=== PATIENT | male | born 1965 | race Two or more races ===

== ENCOUNTER 2018-05-08 15:40 | Inpatient (IN) | payer MEDICARE, OTHER, MEDICAID ==
[2018-05-08 16:06] LABS: ADD MAN DIFF? NO
[2018-05-08 16:07] LABS: BASOPHILS % 0.3 % (0.0-2.0); EOSINOPHILS % 0.4 % (0.0-7.0); HEMATOCRIT 43.5 % (42.0-52.0); HEMOGLOBIN 14.9 g/dl (14.0-18.0); LYMPHOCYTES # 2.1 10^3/ul (0.8-2.9); MEAN CORPUSCULAR HEMOGLOBIN 29.9 pg (29.0-33.0); MEAN CORPUSCULAR HGB CONC 34.3 g/dl (32.0-37.0); MEAN CORPUSCULAR VOLUME 87.2 fl (82.0-101.0); MEAN PLATELET VOLUME 10.3 fl (7.4-10.4); MONOCYTE # 0.7 10^3/ul (0.3-0.9); MONOCYTES % 7.2 % (0.0-11.0); NEUTROPHIL # 6.6 10^3/ul (1.6-7.5); NEUTROPHILS % 69.5 % (39.0-77.0); PLATELET COUNT 206 10^3/UL (140-415); RED BLOOD COUNT 4.99 10^6/ul (4.70-6.10); RED CELL DISTRIBUTION WIDTH 20.1 % (11.5-14.5)
[2018-05-08 16:07] LABS: WHITE BLOOD COUNT 9.5 10^3/ul (4.8-10.8)
[2018-05-08] MEDS ORDERED: HYDROmorphONE 1 MG/ML SYG (16:16)
[2018-05-08] MEDS ORDERED: ONDANSETRON 4 MG INJ (16:16)
[2018-05-08] MEDS: HYDROmorphONE 1 MG/ML SYG IV (16:18)
[2018-05-08] MEDS: ONDANSETRON 4 MG INJ IV (16:18)
[2018-05-08 16:27] LABS: ALANINE AMINOTRANSFERASE 59 IU/L (13-69); ALBUMIN 3.7 g/dl (3.3-4.9); ALBUMIN/GLOBULIN RATIO 1.05; ALKALINE PHOSPHATASE 82 IU/L (42-121); ANION GAP 12 (8-16); ASPARTATE AMINO TRANSFERASE 39 IU/L (15-46); BILIRUBIN,INDIRECT 1.1 mg/dl (0-1.1); BILIRUBIN,TOTAL 1.1 mg/dl (0.2-1.3); BLOOD UREA NITROGEN 17 mg/dl (7-20); CALCIUM 9.7 mg/dl (8.4-10.2); CARBON DIOXIDE 28 mmol/L (21-31); CHLORIDE 103 mmol/L (97-110); CHOLESTEROL 223 mg/dl (100-200); CREATINE KINASE 65 IU/L (23-200); GLUCOSE 120 mg/dl (70-220); HDL CHOLESTEROL 44 mg/dl (28-71); INR 0.87; LDL CHOLESTEROL,CALCULATED 102 mg/dl; POTASSIUM 3.8 mmol/L (3.5-5.1); PROTIME 11.9 Sec (11.9-14.9); PT RATIO 0.9; SODIUM 139 mmol/L (135-144); TOTAL PROTEIN 7.2 g/dl (6.1-8.1); TRIGLYCERIDES 383 mg/dl (0-149)
[2018-05-08 16:28] LABS: PARTIAL THROMBOPLASTIN TIME 30.4 Sec (23.0-35.0)
[2018-05-08] MEDS ORDERED: LABETALOL HCL 20MG INJ IV (16:30)
[2018-05-08] MEDS ORDERED: ACETAMINOPHEN 325 MG TAB PO ×2 (16:30→17:00)
[2018-05-08] MEDS ORDERED: ONDANSETRON 4 MG INJ IV ×2 (16:30→17:00)
[2018-05-08 16:38] LABS: CK INDEX 0.6; CK-MB 0.39 ng/ml (0.0-2.4); TROPONIN-I < 0.012 ng/ml (0.000-0.120)
[2018-05-08] MEDS ORDERED: NACL 0.9% 3 ML SYG IV (17:00)
[2018-05-08] MEDS ORDERED: HYDROmorphONE 0.5 MG/0.5 ML SYG IV (17:00)
[2018-05-08 17:18] LABS: ETHANOL < 10.0 mg/dl
[2018-05-08 17:24] LABS: HEMOGLOBIN A1C 5.8 % (0-5.9)
[2018-05-08] MEDS: DEXAMETHASONE 4 MG/ML 1 ML INJ IV (18:03)
[2018-05-08] MEDS: ASPIRIN 325 MG TAB PO (18:03)
[2018-05-08] MEDS: DEXTROSE 5%-0.45% NACL 1,000 ML IV (18:04)
[2018-05-08] MEDS: PHENYTOIN 1,500 MG in SOD CHLORIDE 0.9% 150 ML IV (18:47)
[2018-05-08] MEDS ORDERED: SOD CHLORIDE 0.9% IV (21:00)
[2018-05-08] MEDS ORDERED: LEVETIRACETAM 1500 MG (PMX) 100 ML IVPB (21:00)
[2018-05-08] MEDS ORDERED: LEVETIRACETAM IV (21:00)
[2018-05-09] MEDS: DEXAMETHASONE 4 MG/ML 1 ML INJ IV ×4 (00:51→17:06)
[2018-05-09] MEDS: DEXTROSE 5%-0.45% NACL 1,000 ML IV ×2 (00:56→05:53)
[2018-05-09 05:26] LABS: ADD MAN DIFF? NO
[2018-05-09 05:34] LABS: HEMATOCRIT 43.7 % (42.0-52.0); HEMOGLOBIN 14.9 g/dl (14.0-18.0); LYMPHOCYTES # 1.1 10^3/ul (0.8-2.9); LYMPHOCYTES % 13.4 % (15.0-51.0); MEAN CORPUSCULAR HEMOGLOBIN 29.7 pg (29.0-33.0); MEAN CORPUSCULAR HGB CONC 34.1 g/dl (32.0-37.0); MEAN CORPUSCULAR VOLUME 87.1 fl (82.0-101.0); MEAN PLATELET VOLUME 10.1 fl (7.4-10.4); MONOCYTE # 0.1 10^3/ul (0.3-0.9); NEUTROPHIL # 7.1 10^3/ul (1.6-7.5); PLATELET COUNT 215 10^3/UL (140-415); RED BLOOD COUNT 5.02 10^6/ul (4.70-6.10); RED CELL DISTRIBUTION WIDTH 20.3 % (11.5-14.5)
[2018-05-09 05:34] LABS: WHITE BLOOD COUNT 8.3 10^3/ul (4.8-10.8)
[2018-05-09 05:46] LABS: HEMOGLOBIN A1C 5.8 % (0-5.9)
[2018-05-09] MEDS: PANTOPRAZOLE 40 MG INJ IV (05:47)
[2018-05-09 06:02] LABS: ALANINE AMINOTRANSFERASE 55 IU/L (13-69); ALBUMIN 3.7 g/dl (3.3-4.9); ALKALINE PHOSPHATASE 78 IU/L (42-121); ANION GAP 18 (8-16); ASPARTATE AMINO TRANSFERASE 37 IU/L (15-46); BLOOD UREA NITROGEN 11 mg/dl (7-20); CALCIUM 9.8 mg/dl (8.4-10.2); CARBON DIOXIDE 25 mmol/L (21-31); CHLORIDE 101 mmol/L (97-110); CREATININE 0.99 mg/dl (0.61-1.24); GLUCOSE 178 mg/dl (70-220); POTASSIUM 4.1 mmol/L (3.5-5.1); SODIUM 140 mmol/L (135-144); TOTAL PROTEIN 7.4 g/dl (6.1-8.1)
[2018-05-09 06:36] LABS: PHENYTOIN (DILANTIN) 13.9 ug/ml (10.0-20.0)
[2018-05-09] MEDS: ASPIRIN 81 MG TAB PO (08:34)
[2018-05-09] MEDS: OXYCODONE/ACETAMINOPHEN (5/325) TAB PO (16:16)
[2018-05-10] MEDS ORDERED: LEVETIRACETAM 750 MG TAB PO (09:00)
[2018-05-10] MEDS ORDERED: FAMOTIDINE 20 MG TAB PO (09:00)
== END 2018-05-09 18:11 | disposition left against medical advice (07) | DRG 54 ==
LOC: 6WM 05-09 02:11 → E/R 15:40 → 6WM 16:41
DX: C71.9 Malignant neoplasm of brain, unspecified (principal); G93.6 Cerebral edema; R47.01 Aphasia; G81.91 Hemiplegia, unspecified affecting right dominant side; I10 Essential (primary) hypertension; K21.9 Gastro-esophageal reflux disease without esophagitis; Z79.899 Other long term (current) drug therapy; Z92.3 Personal history of irradiation; R47.1 Dysarthria and anarthria
CPT/HCPCS: 36415; 70450; 70496; 70498; 70553; 71045; 80053; 80061; 80185; 80307; 82550; 82553; 83036; 83735; 84484; 85025; 85610; 85730; 92610; 93005; 93306; 95819; 96374; 96375; 99291-25